=== PATIENT | female | born 1980 | race Caucasian/White ===

== ENCOUNTER 2017-01-05 18:47 | Emergency (ER) | payer OTHER ==
[2017-01-05 19:10] VITALS: RESP 16
--- NOTE | 2017-01-05 19:26 | ED ---
General Adult HPI - General Chief complaint: Seizure Stated complaint: NVD, altered mental status Time Seen by Provider: 01/05/17 18:52 Source: patient, EMS, RN notes reviewed, old records reviewed Mode of arrival: EMS Limitations: altered mental status - History of Present Illness Initial comments: Chief complaint and history of present illness a 36-year-old female who had a seizure at home. She was sent in by ambulance. Her boyfriend called it in. Patient had a seizure yesterday as well. Today was different because she remained more confused. While in route the patient appeared to improve. She is alert and oriented at this time. Needs only several hints to answer certain questions that are more difficult. She does her own past history including breast cancer and surgeries. As answers for questions like to be confirmed by reading previous charts. At this time the patient's denying any headache - Related Data Home Medications Medication Instructions Recorded Confirmed LORazepam [Ativan] 2 mg PO QID 02/14/15 01/05/17 ALPRAZolam [Xanax] 1 mg PO QID PRN 07/03/16 01/05/17 Acetaminophen Tab [Tylenol Tab] 1,000 mg PO Q6HR PRN 01/05/17 01/05/17 levETIRAcetam [Keppra] 500 mg PO BID 01/05/17 01/05/17 Previous Rx's Medication Instructions Recorded Zonisamide [Zonegran] 100 mg PO Q12HR #60 cap 06/09/16 Allergies Allergy/AdvReac Type Severity Reaction Status Date / Time amoxicillin Allergy Unknown Verified 01/05/17 20:02 gabapentin [From Neurontin] Allergy Unknown Verified 01/05/17 20:02 Childhood ibuprofen [From Motrin] Allergy HIVES Verified 01/05/17 20:02 metronidazole [From Flagyl] Allergy Unknown Verified 01/05/17 20:02 sulfamethoxazole Allergy Unknown Verified 01/05/17 20:02 [From Bactrim] trimethoprim [From Bactrim] Allergy Unknown Verified 01/05/17 20:02 carbamazepine [From Tegretol] AdvReac "MORE Verified 01/05/17 20:02 SEIZURES" cephalexin [From Keflex] AdvReac Rash/Hives Verified 01/05/17 20:02 Review of Systems ROS Statement: Those systems with pertinent positive or pertinent negative responses have been documented in the HPI. Review of systems at this time the patient's answering questions appropriately. Denying headache chest pain shortness breath GI/ problems. No evidence of any neuro deficit this time. Patient states she has seizures almost every day. States her boyfriend, Kalpana, called the ambulance today. She does follow up with neurology she has had a local neurologist and also one done in the city. In the past she is not been compliant with visits to the doctor. Her medications are Keppra and Zonegran. All systems reviewed past medical problems significant for breast cancer with bilateral mastectomies. He's also had a tubal pregnancies had surgery for that. History of seizure disorder on medications as noted. Daily encouraged to stop. Denies alcohol use. ROS Other: All systems not noted in ROS Statement are negative. Past Medical History Past Medical History: Cancer, GERD/Reflux, Seizure Disorder Additional Past Medical History / Comment(s): BREAST CANCER, h. pylori History of Any Multi-Drug Resistant Organisms: None Reported Additional Past Surgical History / Comment(s): Mastectomy-bilaterial BREAST SURGERY, LAPAROTOMY-FOR ECTOPIC PREG),' REMOVED FROM THROAT WIRES/IMPLANT THAT WAS IMPLANTED FOR SEIZURES", BILATERAL FALLOPIAN TUBES REMOVED Past Anesthesia/Blood Transfusion Reactions: Previous Problems w/ Anesthesia Additional Past Anesthesia/Blood Transfusion Reaction / Comment(s): DIFFICULT INTUBATION/ PNEUMONIA(ASPIRATION)thrush Past Psychological History: Depression, PTSD, Schizophrenia Additional Psychological History / Comment(s): Pt resides with her significant other: Ramon Dale. She is normally independent. She uses no assistive devices. She has no home care. She does not drive due to seizure disorder. Smoking Status: Current every day smoker Past Alcohol Use History: Rare Additional Past Alcohol Use History / Comment(s): Pt smokes about < 1/2 ppd. She started smoking at age 13 yrs old. Past Drug Use History: None Reported - Past Family History Father History Unknown: Yes Additional Family Medical History / Comment(s): Pt never knew her father" Mother History Unknown: Yes Additional Family Medical History / Comment(s): Pt does not know her mother's history- pt was raised in foster care for much of her life. General Exam - General Exam Comments Initial Comments: General: The patient became more and more alert while emergency room even over the first 15 minutes. Patient was alert and oriented the only question she got wrong was the month but he was able to figure it out when given a few clues. Vital signs within normal limits. Eye: Pupils are equal, round and reactive to light, extra-ocular movements are intact ; there is normal conjunctiva bilaterally. No signs of icterus. Ears, nose, mouth and throat: There are moist mucous membranes and no oral lesions. Neck: The neck is supple, there is no tenderness , no anterior cervical lymphadenopathy, no evidence of any meningeal irritation. No meningismus. Cardiovascular: There is a regular rate and rhythm. No murmur, rub or gallop is appreciated. Respiratory: Lungs are clear to auscultation, respirations are non-labored, breath sounds are equal. No wheezes, stridor, rales, or rhonchi. Gastrointestinal: Soft, non-distended, non-tender abdomen without masses or organomegaly noted. There is no rebound or guarding present. No CVA tenderness. Bowel sounds are unremarkable. Back: There is no tenderness to palpation in the midline. There is no obvious deformity. No rashes noted. Musculoskeletal: Normal ROM, no tenderness, There is no pedal edema. There is no calf tenderness or swelling. Sensation intact. Pulses equal bilaterally 2+. Neurological: CN II-XII intact, There are no obvious motor or sensory deficits. Coordination appears grossly intact. Speech is normal. No focal or lateralizing findings. Initially the patient has some difficulty watching my finger but then she caught on was able to do it. Skin: Skin is warm and dry and no rashes or lesions are noted. Psychiatric: Cooperative, appropriate mood & affect, normal judgment. Denying any depression. Limitations: altered mental status Course Vital Signs 01/05/17 19:05 Temperature 98.3 F Pulse Rate 85 Respiratory 16 Rate Blood Pressure 116/73 O2 Sat by Pulse 100 Oximetry Medical Decision Making - Medical Decision Making Medical decision making patient's white count is 8.8 hemoglobin 12 hematocrit 38 BUN 16 creatinine 0.6 and GFR greater than 60. Glucose 92 with a potassium 4.1. Patient's boyfriend Ramon is here at bedside. Changes back to normal. She is answering questions quickly and appropriately. She does state that she does not currently have a neurologist seeing but she is getting her prescriptions rewritten by her family doctor. She states the family doctor's trying to help her get established with another neurologist. The boyfriend reports that she did run out of her medications several days ago missed 1 day only but is back on them now. Patient is alert and oriented wants to go home boyfriend states she is back to normal and is willing to take her home continue watching her. And have her follow-up with her family physician and establish herself with a neurologist. - Lab Data Result diagrams: 01/05/17 19:50 01/05/17 19:50 Lab Results 01/05/17 01/05/17 Range/Units 19:50 19:50 WBC 8.8 (3.8-10.6) k/uL RBC 3.90 (3.80-5.40) m/uL Hgb 12.6 (11.4-16.0) gm/dL Hct 38.1 (34.0-46.0) % MCV 97.9 (80.0-100.0) fL MCH 32.4 (25.0-35.0) pg MCHC 33.2 (31.0-37.0) g/dL RDW 13.8 (11.5-15.5) % Plt Count 130 L (150-450) k/uL Neutrophils % 76 % Lymphocytes % 15 % Monocytes % 6 % Eosinophils % 0 % Basophils % 0 % Neutrophils # 6.6 (1.3-7.7) k/uL Lymphocytes # 1.3 (1.0-4.8) k/uL Monocytes # 0.6 (0-1.0) k/uL Eosinophils # 0.0 (0-0.7) k/uL Basophils # 0.0 (0-0.2) k/uL Sodium 139 (137-145) mmol/L Potassium 4.1 (3.5-5.1) mmol/L Chloride 108 H (98-107) mmol/L Carbon Dioxide 19 L (22-30) mmol/L Anion Gap 12 mmol/L BUN 16 (7-17) mg/dL Creatinine 0.60 (0.52-1.04) mg/dL Est GFR (MDRD) Af Amer >60 (>60 ml/min/1.73 sqM) Est GFR (MDRD) Non-Af >60 (>60 ml/min/1.73 sqM) Glucose 92 (74-99) mg/dL Calcium 9.3 (8.4-10.2) mg/dL Total Bilirubin 0.6 (0.2-1.3) mg/dL AST 22 (14-36) U/L ALT 40 (9-52) U/L Alkaline Phosphatase 46 (38-126) U/L Total Protein 7.0 (6.3-8.2) g/dL Albumin 4.3 (3.5-5.0) g/dL Disposition Clinical Impression: Post-ictal confusion Disposition: HOME SELF-CARE Condition: Good Instructions: Recurrent Seizures in Adults (ED) Additional Instructions: Remember take medications every day. Get adequate rest. Follow-up family physician. Reestablish herself with a neurologist. Time of Disposition: 20:39
[2017-01-05 20:08] LABS: Basophils % (A) 0 %; CH 32.5; CHCM 33.4; Eosinophils % (A) 0 %; HCT 38.1 % (34.0-46.0); HDW 2.09; HGB 12.6 gm/dL (11.4-16.0); Luc % (Auto) 2; Lymphocytes # (A) 1.3 k/uL (1.0-4.8); Lymphocytes % (A) 15 %; MCH 32.4 pg (25.0-35.0); MCHC 33.2 g/dL (31.0-37.0); MCV 97.9 fL (80.0-100.0); Mean Platelet Volume 8.5; Monocytes # (A) 0.6 k/uL (0-1.0); Monocytes % (A) 6 %; Neutrophils # (A) 6.6 k/uL (1.3-7.7); Neutrophils % (A) 76 %; RDW 13.8 % (11.5-15.5); WBC 8.8 k/uL (3.8-10.6); WBC (Perox) 9.01
[2017-01-05 20:17] LABS: ALT 40 U/L (9-52); AST 22 U/L (14-36); Alkaline Phosphatase 46 U/L (38-126); Anion Gap 12 mmol/L; Blood Urea Nitrogen 16 mg/dL (7-17); Calcium 9.3 mg/dL (8.4-10.2); Carbon Dioxide 19 mmol/L (22-30); Chloride 108 mmol/L (98-107); Glucose 92 mg/dL (74-99); Non-African American GFR(MDRD) >60 (>60 ml/min/1.73 sqM); Potassium 4.1 mmol/L (3.5-5.1); Sodium 139 mmol/L (137-145); Total Bilirubin 0.6 mg/dL (0.2-1.3)
[2017-01-05 20:43] VITALS: BP 107/71; PULSE 99; TEMP 98.1
[2017-01-07 11:20] LABS: Levetiracetam (Keppra) <1.0 ug/mL (3.0-60.0)
== END 2017-01-05 21:10 | disposition home or self-care (01) ==
LOC: EC 18:47
DX: G40.909 Epilepsy, unspecified, not intractable, without status epilepticus (principal); F17.200 Nicotine dependence, unspecified, uncomplicated; Z79.899 Other long term (current) drug therapy; Z88.0 Allergy status to penicillin; Z88.8 Allergy status to other drugs, medicaments and biological substances; Z88.2 Allergy status to sulfonamides; Z88.1 Allergy status to other antibiotic agents
CPT/HCPCS: 36415; 80053; 80177; 80203; 85025; 93005; 99285

== ENCOUNTER 2017-11-21 19:59 | Emergency (ER) | payer OTHER ==
[2017-11-21] MEDS ORDERED: RX INFO: IV CONTRAST WAS GIVEN 1 EACH MISC MISCELLANE PRN (20:57)
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
[2017-11-21 21:36] LABS: Basophils % (A) 1 %; Eosinophils # (A) 0.1 k/uL (0-0.7); Eosinophils % (A) 2 %; HCT 44.2 % (34.0-46.0); HGB 13.7 gm/dL (11.4-16.0); Lymphocytes # (A) 1.8 k/uL (1.0-4.8); Lymphocytes % (A) 25 %; MCH 31.3 pg (25.0-35.0); MCHC 31.1 g/dL (31.0-37.0); MCV 100.7 fL (80.0-100.0); Macrocytosis Slight; Mean Platelet Volume 9.4; Monocytes # (A) 0.3 k/uL (0-1.0); Monocytes % (A) 4 %; Neutrophils # (A) 4.8 k/uL (1.3-7.7); Neutrophils % (A) 67 %; Platelet Count 116 k/uL (150-450); RBC 4.38 m/uL (3.80-5.40); RDW 14.4 % (11.5-15.5); WBC 7.1 k/uL (3.8-10.6)
[2017-11-21 21:37] VITALS: RESP 18
[2017-11-21 21:46] LABS: ALT 20 U/L (9-52); AST 24 U/L (14-36); Albumin 4.7 g/dL (3.5-5.0); Alkaline Phosphatase 54 U/L (38-126); Anion Gap 13 mmol/L; Blood Urea Nitrogen 10 mg/dL (7-17); Carbon Dioxide 20 mmol/L (22-30); Chloride 110 mmol/L (98-107); Glucose 111 mg/dL (74-99); Magnesium 1.9 mg/dL (1.6-2.3); Sodium 143 mmol/L (137-145); Total Bilirubin 0.6 mg/dL (0.2-1.3); Total Protein 7.9 g/dL (6.3-8.2)
[2017-11-21 21:48] LABS: Potassium 5.3 mmol/L (3.5-5.1)
[2017-11-21 21:50] LABS: INR 1.1 (<1.2); Partial Thromboplastin Time 22.1 sec (22.0-30.0); Prothrombin Time 10.7 sec (9.0-12.0)
[2017-11-21 21:56] LABS: Creatine Kinase 43 U/L (30-135)
[2017-11-21 22:07] LABS: Amphetamine Screen,Urine Not Detected (NotDetected); Barbiturate Screen,Urine Not Detected (NotDetected); Benzodiazepines Screen,Urine Detected (NotDetected); Cocaine Screen,Urine Not Detected (NotDetected); Methadone Screen, Urine Not Detected (NotDetected); Opiate Screen,Urine Not Detected (NotDetected); Oxycodone Screen, Urine Not Detected (NotDetected); Phencyclidine Screen,Urine Not Detected (NotDetected); Tricyclic Antidepressant,Urine Not Detected (NotDetected); Urn Cannabinoid Scrn Not Detected (NotDetected)
[2017-11-21 22:09] LABS: Creatine Kinase MB <0.2 ng/mL (0.0-2.4); Troponin I 0.012 ng/mL (0.000-0.034)
--- NOTE | 2017-11-21 22:24 | CT ---
EXAMINATION TYPE: CT brain wo con DATE OF EXAM: 11/21/2017 COMPARISON: 06/13/2016 HISTORY: Seizures. History of epilepsy. CT DLP: 926.50 mGycm. Automated Exposure Control for Dose Reduction was Utilized. TECHNIQUE: CT scan of the head is performed without contrast. FINDINGS: Ventricles and sulci appear normal. There is no mass effect nor midline shift. There is n o sign of intracranial hemorrhage. The calvarium is intact. CONCLUSION: Negative CT scan of the brain. No change.
--- NOTE | 2017-11-21 22:28 | CT ---
EXAMINATION TYPE: CT chest angio for PE DATE OF EXAM: 11/21/2017 COMPARISON: NONE HISTORY: Chest pain. CT DLP: 133.40 mGycm Automated exposure control for dose reduction was used. CONTRAST: CT Chest for pulmonary embolism performed with with IV Contrast, patient injected with 67 mL of Omnip aque 350. There are 3-D post processed images. FINDINGS: The lungs are clear of consolidation. There is no evidence of a pulmonary mass. Heart size is normal. There is no mediastinal adenopathy. There are no hilar masses. There is no pericardial effusion. I see no filling defects in the pulmonary arteries. There is no evidence of aortic aneurysm or dissec tion. The bony thorax appears intact. IMPRESSION: Negative CT angiogram of the chest. No evidence of pulmonary embolism.
[2017-11-21 22:53] VITALS: BP 103/72; PULSE 95; TEMP 98
== END 2017-11-21 23:04 | disposition home or self-care (01) ==
LOC: EC 19:59
DX: S05.12XA Contusion of eyeball and orbital tissues, left eye, initial encounter (principal); H11.32 Conjunctival hemorrhage, left eye; G40.909 Epilepsy, unspecified, not intractable, without status epilepticus; R07.89 Other chest pain; F20.9 Schizophrenia, unspecified; F32.9 Major depressive disorder, single episode, unspecified; F43.10 Post-traumatic stress disorder, unspecified; F17.200 Nicotine dependence, unspecified, uncomplicated; Z85.3 Personal history of malignant neoplasm of breast; Z79.899 Other long term (current) drug therapy; Z88.1 Allergy status to other antibiotic agents; Z88.2 Allergy status to sulfonamides; Z88.6 Allergy status to analgesic agent; Z88.8 Allergy status to other drugs, medicaments and biological substances; Z88.0 Allergy status to penicillin; W18.00XA Striking against unspecified object with subsequent fall, initial encounter
CPT/HCPCS: 99285; 36415; 93005; 80053; 80177; 82550; 82553; 83735; 84484; 85025; 85610; 85730; 81025; 80306; 70450; 71275; Q9967

== ENCOUNTER 2018-02-12 10:30 | Day surgery (SDC) | payer OTHER ==
[2018-02-10 14:59] VITALS: BMI 19.5
[2018-02-12 11:38] VITALS: RESP 16; TEMP 97.9
[2018-02-12] MEDS ORDERED: LACTATED RINGERS 1,000 ML IV ONE (11:43)
[2018-02-12] MEDS ORDERED: LIDOCAINE 1% 20 ML VIAL (10MG/ML) FOR IV START INTRADERMA ONE (11:44)
[2018-02-12] MEDS ORDERED: PROPOFOL 10 MG/ML 20 ML VIAL IV ONE (12:46)
[2018-02-12] MEDS ORDERED: fentaNYL (PF) 50 MCG/ML 2 ML AMP ONE (12:46)
[2018-02-12] MEDS ORDERED: MIDAZOLAM 2 MG/2 ML VIAL ONE (12:46)
[2018-02-12] MEDS ORDERED: LIDOCAINE 1% INJ 10MG/ML (20 ML MDV) ONE (12:46)
--- NOTE | 2018-02-12 12:56 | P.PCN ---
Date of Procedure: 02/12/18 Procedure(s) Performed: BRIEF HISTORY: Patient is a 37-year-old, pleasant, female, scheduled for an upper endoscopy as a part of evaluation of epigastric pain associated with nausea vomiting for the last 6-7 months duration. She tried Prilosec with no help. Hence scheduled for an upper endoscopy to evaluate further. PROCEDURE PERFORMED: Esophagogastroduodenoscopy with biopsy. PREOPERATIVE DIAGNOSIS: Epigastric pain, nausea vomiting of several months duration. IV sedation per anesthesia. PROCEDURE: After informed consent was obtained, the patient was brought into the endoscopy unit. IV sedation was administered by Anesthesia under continuous monitoring. Initially the Olympus GIF-140 video endoscope was inserted into the mouth. Esophagus intubated without any difficulty. It was gradually advanced into the stomach and duodenum and carefully examined. The bulb and the second part of the duodenum appeared normal. Labs were done from the duodenum to rule out celiac disease. The scope at this time was withdrawn to the stomach, adequately insufflated with air, and upon careful examination, mucosa of the antrum, had patchy areas of erythema and biopsies were done from this area. The body, cardia and the fundus appeared normal. The scope was then withdrawn into the esophagus. The GE junction was located at 42 cm from the incisors. The esophagus appeared normal. There were no erosions or ulcerations seen and the patient tolerated the procedure well. IMPRESSION: 1. Mild Antral gastritis. 2. No evidence of esophagitis or peptic ulcer disease. RECOMMENDATIONS: The findings of this examination were discussed with the patient as well as his family. She was advised to follow with the biopsy results.
[2018-02-12] MEDS ORDERED: IV FLUID CONTINUATION 1,000 ML IV ONE (13:01)
[2018-02-12 13:18] VITALS: BP 107/68; PULSE 63
== END 2018-02-12 13:41 | disposition home or self-care (01) ==
LOC: ORWHC2ENDO 10:30
PROVIDERS: ATTEND Internal Medicine Gastroenterology
DX: K29.50 Unspecified chronic gastritis without bleeding (principal); K21.9 Gastro-esophageal reflux disease without esophagitis; R56.9 Unspecified convulsions; Z88.0 Allergy status to penicillin; Z88.6 Allergy status to analgesic agent; Z88.8 Allergy status to other drugs, medicaments and biological substances; Z79.899 Other long term (current) drug therapy; Z87.01 Personal history of pneumonia (recurrent)
CPT/HCPCS: 88305; 43239; J2250; J2001; J3010; J2704

== ENCOUNTER 2018-11-17 01:54 | Emergency (ER) | payer OTHER ==
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
[2018-11-17 02:23] VITALS: RESP 16; TEMP 98
[2018-11-17 03:06] LABS: Amphetamine Screen,Urine Not Detected (NotDetected); Barbiturate Screen,Urine Not Detected (NotDetected); Benzodiazepines Screen,Urine Detected (NotDetected); Cocaine Screen,Urine Not Detected (NotDetected); Methadone Screen, Urine Not Detected (NotDetected); Opiate Screen,Urine Not Detected (NotDetected); Oxycodone Screen, Urine Not Detected (NotDetected); Phencyclidine Screen,Urine Not Detected (NotDetected); Tricyclic Antidepressant,Urine Not Detected (NotDetected); Urn Cannabinoid Scrn Not Detected (NotDetected)
[2018-11-17] MEDS ORDERED: diphenhydrAMINE 50 MG/ML 1 ML VIAL IM STA (03:24)
[2018-11-17] MEDS ORDERED: HALOPERIDOL LACTATE 5 MG/ML 1 ML VIAL IM STA (03:24)
[2018-11-17 06:54] VITALS: BP 90/60; PULSE 98
== END 2018-11-17 07:18 | disposition home or self-care (01) ==
LOC: EC 01:54
DX: F10.129 Alcohol abuse with intoxication, unspecified (principal); R45.6 Violent behavior; G40.909 Epilepsy, unspecified, not intractable, without status epilepticus; F32.9 Major depressive disorder, single episode, unspecified; F17.200 Nicotine dependence, unspecified, uncomplicated; Z88.0 Allergy status to penicillin; Z88.1 Allergy status to other antibiotic agents; Z88.2 Allergy status to sulfonamides; Z88.6 Allergy status to analgesic agent; Z88.8 Allergy status to other drugs, medicaments and biological substances; Z79.899 Other long term (current) drug therapy; Z85.3 Personal history of malignant neoplasm of breast; Z90.13 Acquired absence of bilateral breasts and nipples
CPT/HCPCS: 80306; 99284; 96372 ×2; J1200; J1630; 82075

== ENCOUNTER 2019-05-21 23:01 | Emergency (ER) | payer OTHER ==
[2019-05-21 23:23] VITALS: RESP 16
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
[2019-05-21 23:38] VITALS: BP 138/68; PULSE 82; TEMP 98
== END 2019-05-21 23:35 | disposition home or self-care (01) ==
LOC: EC 23:01
DX: F43.0 Acute stress reaction (principal); G40.919 Epilepsy, unspecified, intractable, without status epilepticus; F17.200 Nicotine dependence, unspecified, uncomplicated; Z88.0 Allergy status to penicillin; Z88.1 Allergy status to other antibiotic agents; Z88.2 Allergy status to sulfonamides; Z88.6 Allergy status to analgesic agent; Z88.5 Allergy status to narcotic agent; Z88.8 Allergy status to other drugs, medicaments and biological substances; Z79.899 Other long term (current) drug therapy; Z85.3 Personal history of malignant neoplasm of breast; Z90.13 Acquired absence of bilateral breasts and nipples
CPT/HCPCS: 82075; 93005; 99285

== ENCOUNTER 2020-08-13 02:42 | Observation (INO) | payer OTHER ==
--- NOTE | 2020-08-13 02:58 | ED ---
General Adult HPI - General Chief complaint: Overdose Stated complaint: ALLERGIC REACTION Time Seen by Provider: 08/13/20 02:57 Source: EMS Mode of arrival: EMS - History of Present Illness Initial comments: Samantha is a 39-year-old female with extensive history notable for seizure disorder as well as multiple psychiatric illnesses. Patient reports that she is currently being transitioned from Seroquel at night to trazodone. She states she's been told to wean down her Seroquel which she's been doing can't explain exactly how she is been doing this. States that tonight prior to going to bed she took all of her medications at the same time including Ativan, Benadryl for her seasonal ALLERGIES, Seroquel and trazodone. Patient reports she woke up around 2 AM feeling like she had very dry mouth like her lips were numb and like she was too woozy and didn't feel right. - Related Data Home Medications Medication Instructions Recorded Confirmed LORazepam [Ativan] 2 mg PO QID 02/14/15 05/21/19 levETIRAcetam [Keppra] 1,500 mg PO BID 01/05/17 05/21/19 Zonisamide [Zonegran] 100 mg PO HS 11/21/17 05/21/19 Zonisamide [Zonegran] 200 mg PO QAM 11/21/17 05/21/19 Melatonin 5 mg PO HS 05/21/19 05/21/19 Allergies Allergy/AdvReac Type Severity Reaction Status Date / Time amoxicillin Allergy Rash/Hives Verified 05/21/19 23:22 cephalexin [From Keflex] Allergy Rash/Hives Verified 05/21/19 23:22 codeine Allergy Unknown Verified 05/21/19 23:22 gabapentin [From Neurontin] Allergy Unknown Verified 05/21/19 23:22 Childhood ibuprofen [From Motrin] Allergy HIVES Verified 05/21/19 23:22 metronidazole [From Flagyl] Allergy Unknown Verified 05/21/19 23:22 sulfamethoxazole Allergy Unknown Verified 05/21/19 23:22 [From Bactrim] trimethoprim [From Bactrim] Allergy Unknown Verified 05/21/19 23:22 carbamazepine [From Tegretol] AdvReac "MORE Verified 05/21/19 23:22 SEIZURES" Review of Systems ROS Statement: Those systems with pertinent positive or pertinent negative responses have been documented in the HPI. ROS Other: All systems not noted in ROS Statement are negative. Past Medical History Past Medical History: Cancer, GERD/Reflux, Pneumonia, Seizure Disorder Additional Past Medical History / Comment(s): vomiting with bleeding,BREAST CANCER-no radiation or chemo-1998, h. pylori,hx of being in a coma from seizures History of Any Multi-Drug Resistant Organisms: None Reported Additional Past Surgical History / Comment(s): Mastectomy-bilaterial BREAST SURGERY, LAPAROTOMY-FOR ECTOPIC PREG),' REMOVED FROM THROAT WIRES/IMPLANT THAT WAS IMPLANTED FOR SEIZURES-bars still implanted to skull", BILATERAL FALLOPIAN TUBES REMOVED Past Anesthesia/Blood Transfusion Reactions: Previous Problems w/ Anesthesia Additional Past Anesthesia/Blood Transfusion Reaction / Comment(s): DIFFICULT INTUBATION/ PNEUMONIA(ASPIRATION)-pt does not recall difficulty with intubation- stated "was in a coma from seizures when this would have occurred,no letter given". Past Psychological History: Depression, PTSD, Schizophrenia Smoking Status: Current every day smoker Past Alcohol Use History: Occasional Past Drug Use History: None Reported - Past Family History Father History Unknown: Yes Additional Family Medical History / Comment(s): Pt never knew her father" Mother History Unknown: Yes Additional Family Medical History / Comment(s): Pt does not know her mother's history- pt was raised in foster care for much of her life. General Exam - General Exam Comments Initial Comments: Physical Exam GENERAL: Sleepy but wakes to voice, provides appropriate history HENT: Normocephalic, Atraumatic. EYES: PERRL, EOMI Pupils are 4 mm and reactive bilaterally PULMONARY: Unlabored respirations. No audible rales rhonchi or wheezing was noted. CARDIOVASCULAR: There is a regular rate and rhythm without any murmurs gallops or rubs. ABDOMEN: Soft and nontender with normal bowel sounds. SKIN: Skin is clear with no lesions or rashes and otherwise unremarkable. No diaphoresis : Deferred NEUROLOGIC: Patient is alert and oriented x3. Moving all extremities spontaneously Speech is mildly slurred patient appears intoxicated or under the influence MUSCULOSKELETAL: Normal extremities with adequate strength and full range of motion. No lower extremity swelling or edema. No calf tenderness. PSYCHIATRIC: Normal psychiatric evaluation. Course Vital Signs 08/13/20 02:45 Temperature 97.2 F L Pulse Rate 88 Respiratory 20 Rate Blood Pressure 112/91 O2 Sat by Pulse 97 Oximetry EKG Findings - EKG Comments: EKG Findings:: EKG was obtained due to polysubstance ingestion, EKG was obtained at 3:44 AM, rate is 84 rhythm is sinus, LA 1:30, QRS 92, QTc is prolonged at [address] elevations there are T-wave inversions in V1 through V4 . No evidence of acute ischemia or infarction. Medical Decision Making - Medical Decision Making The patient was seen and evaluated history is obtained as best as possible from the patient who appears to be intoxicated Patient admits to taking Ativan, Benadryl, trazodone, Seroquel patient has a strong odor of alcohol Labs resulted with evidence of alcohol intoxication We observed the patient for 4 hours however she remained quite somnolent, she urinated on herself in the bed. She does not have any emergency contact anybody who could observe her at home. At this time in all nguyen a for the patient be discharged home she will be placed in observation. Plan for observation was discussed with Dr. Fajardo the [facility] physician group who agrees with plan for observation with telemetry monitoring - Lab Data Result diagrams: 08/13/20 04:20 08/13/20 04:20 Lab Results 08/13/20 08/13/20 Range/Units 04:20 04:20 WBC 3.5 L (3.8-10.6) k/uL RBC 4.39 (3.80-5.40) m/uL Hgb 14.1 (11.4-16.0) gm/dL Hct 42.7 (34.0-46.0) % MCV 97.1 (80.0-100.0) fL MCH 32.1 (25.0-35.0) pg MCHC 33.0 (31.0-37.0) g/dL RDW 12.8 (11.5-15.5) % Plt Count 92 L (150-450) k/uL Neutrophils % 40 % Lymphocytes % 49 % Monocytes % 7 % Eosinophils % 1 % Basophils % 0 % Neutrophils # 1.4 (1.3-7.7) k/uL Lymphocytes # 1.7 (1.0-4.8) k/uL Monocytes # 0.2 (0-1.0) k/uL Eosinophils # 0.0 (0-0.7) k/uL Basophils # 0.0 (0-0.2) k/uL Manual Slide Review Performed Sodium 142 (137-145) mmol/L Potassium 4.0 (3.5-5.1) mmol/L Chloride 110 H (98-107) mmol/L Carbon Dioxide 21 L (22-30) mmol/L Anion Gap 11 mmol/L BUN 6 L (7-17) mg/dL Creatinine 0.66 (0.52-1.04) mg/dL Est GFR (CKD-EPI)AfAm >90 (>60 ml/min/1.73 sqM) Est GFR (CKD-EPI)NonAf >90 (>60 ml/min/1.73 sqM) Glucose 100 H (74-99) mg/dL Calcium 8.9 (8.4-10.2) mg/dL Total Bilirubin 0.2 (0.2-1.3) mg/dL AST 23 (14-36) U/L ALT 12 (4-34) U/L Alkaline Phosphatase 35 L (38-126) U/L Total Protein 7.5 (6.3-8.2) g/dL Albumin 4.6 (3.5-5.0) g/dL Salicylates <1.0 mg/dL Acetaminophen <10.0 ug/mL Serum Alcohol 131 mg/dL Disposition Clinical Impression: Accidental drug overdose Disposition: ADMITTED IP TO THIS HOSP Additional Instructions: Do NOT take your medications together at night Do NOT take your medications with alcohol Do NOT take both seroquel AND trazadone to sleep, take only one per night Follow up with your primary care doctor and psychiatrist for further recommendations Is patient prescribed a controlled substance at d/c from ED?: No Referrals: None,Stated [Primary Care Provider] - 1-2 days
[2020-08-13] MEDS ORDERED: SODIUM CHLORIDE 0.9% 1,000 ML IV STA (03:33)
[2020-08-13 04:29] LABS: Basophils % (A) 0 %; Eosinophils % (A) 1 %; HCT 42.7 % (34.0-46.0); HGB 14.1 gm/dL (11.4-16.0); Lymphocytes # (A) 1.7 k/uL (1.0-4.8); Lymphocytes % (A) 49 %; MCH 32.1 pg (25.0-35.0); MCV 97.1 fL (80.0-100.0); Mean Platelet Volume 9.3; Monocytes # (A) 0.2 k/uL (0-1.0); Monocytes % (A) 7 %; Neutrophils # (A) 1.4 k/uL (1.3-7.7); Neutrophils % (A) 40 %; RBC 4.39 m/uL (3.80-5.40); RDW 12.8 % (11.5-15.5); WBC 3.5 k/uL (3.8-10.6)
[2020-08-13 04:38] LABS: ALT 12 U/L (4-34); AST 23 U/L (14-36); Acetaminophen <10.0 ug/mL; African American GFR (CKD) >90 (>60 ml/min/1.73 sqM); Albumin 4.6 g/dL (3.5-5.0); Alcohol 131 mg/dL; Alkaline Phosphatase 35 U/L (38-126); Anion Gap 11 mmol/L; Blood Urea Nitrogen 6 mg/dL (7-17); Calcium 8.9 mg/dL (8.4-10.2); Carbon Dioxide 21 mmol/L (22-30); Chloride 110 mmol/L (98-107); Glucose 100 mg/dL (74-99); Non-African American GFR(CKD) >90 (>60 ml/min/1.73 sqM); Salicylate <1.0 mg/dL; Sodium 142 mmol/L (137-145); Total Bilirubin 0.2 mg/dL (0.2-1.3); Total Protein 7.5 g/dL (6.3-8.2)
[2020-08-13 04:51] LABS: Platelet Count 92 k/uL (150-450)
[2020-08-13] MEDS ORDERED: NALOXONE 0.4 MG/ML 1 ML VIAL IV PRN (07:19)
[2020-08-13] MEDS ORDERED: ACETAMINOPHEN TAB 325 MG TAB PO PRN (14:42)
[2020-08-13] MEDS ORDERED: ONDANSETRON 4 MG/2 ML VIAL IVP PRN (14:42)
[2020-08-13] MEDS ORDERED: THIAMINE 100 MG/ML 2 ML VIAL IM STA (14:50)
[2020-08-13] MEDS ORDERED: LORazepam 2 MG/ML INJ IV PRN ×3 (14:50)
--- NOTE | 2020-08-13 14:51 | P.HPIM ---
History of Present Illness H&P Date: 08/13/20 Chief Complaint: After mental status This is a 39-year-old female with past medical history significant for underlying seizure disorder and unspecified psychiatric disorder that presented to the emergency room with confusion. Patient was seen by me in the ER. She was uncooperative and not answering any of my questions. She appeared catatonic and occasionally answer my questions abruptly with unclear speech. She was evaluated in the ER and per ER report patient took Seroquel, Ativan, Benadryl, and trazodone last night and woke up around 2 AM with a very dry mouth and lips. She reported having numbness in her lips as well. Workup in the emergency room showed that her lab work was mostly within acceptable range. No seizure activity detected. Patient will be placed in observation for further management. Review of Systems Unable to review other systems as patient is not cooperative Past Medical History Past Medical History: Cancer, GERD/Reflux, Pneumonia, Seizure Disorder Additional Past Medical History / Comment(s): vomiting with bleeding,BREAST CANCER-no radiation or chemo-1998, h. pylori,hx of being in a coma from seizures History of Any Multi-Drug Resistant Organisms: None Reported Additional Past Surgical History / Comment(s): Mastectomy-bilaterial BREAST SURGERY, LAPAROTOMY-FOR ECTOPIC PREG),' REMOVED FROM THROAT WIRES/IMPLANT THAT WAS IMPLANTED FOR SEIZURES-bars still implanted to skull", BILATERAL FALLOPIAN TUBES REMOVED Past Anesthesia/Blood Transfusion Reactions: Previous Problems w/ Anesthesia Additional Past Anesthesia/Blood Transfusion Reaction / Comment(s): DIFFICULT INTUBATION/ PNEUMONIA(ASPIRATION)-pt does not recall difficulty with intubation- stated "was in a coma from seizures when this would have occurred,no letter given". Past Psychological History: Depression, PTSD, Schizophrenia Smoking Status: Current every day smoker Past Alcohol Use History: Occasional Past Drug Use History: None Reported - Past Family History Father History Unknown: Yes Additional Family Medical History / Comment(s): Pt never knew her father" Mother History Unknown: Yes Additional Family Medical History / Comment(s): Pt does not know her mother's history- pt was raised in foster care for much of her life. Medications and Allergies Home Medications Medication Instructions Recorded Confirmed Type LORazepam [Ativan] 2 mg PO QID 02/14/15 05/21/19 History levETIRAcetam [Keppra] 1,500 mg PO BID 01/05/17 05/21/19 History Zonisamide [Zonegran] 100 mg PO HS 11/21/17 05/21/19 History Zonisamide [Zonegran] 200 mg PO QAM 11/21/17 05/21/19 History Melatonin 5 mg PO HS 05/21/19 05/21/19 History Allergies Allergy/AdvReac Type Severity Reaction Status Date / Time amoxicillin Allergy Rash/Hives Verified 05/21/19 23:22 cephalexin [From Keflex] Allergy Rash/Hives Verified 05/21/19 23:22 codeine Allergy Unknown Verified 05/21/19 23:22 gabapentin [From Neurontin] Allergy Unknown Verified 05/21/19 23:22 Childhood ibuprofen [From Motrin] Allergy HIVES Verified 05/21/19 23:22 metronidazole [From Flagyl] Allergy Unknown Verified 05/21/19 23:22 sulfamethoxazole Allergy Unknown Verified 05/21/19 23:22 [From Bactrim] trimethoprim [From Bactrim] Allergy Unknown Verified 05/21/19 23:22 carbamazepine [From Tegretol] AdvReac "MORE Verified 05/21/19 23:22 SEIZURES" Physical Exam Vitals: Vital Signs Temp Pulse Resp BP Pulse Ox 08/13/20 11:00 87 16 112/86 97 08/13/20 10:00 80 16 113/76 97 08/13/20 09:00 81 16 113/77 97 08/13/20 08:00 77 16 111/80 97 08/13/20 07:23 84 18 112/74 99 08/13/20 02:45 97.2 F L 88 20 112/91 97 Intake and Output 08/12/20 08/13/20 08/13/20 22:59 06:59 14:59 Other: Weight 67.585 kg General: The patient is awake and alert, in no distress Eye: there is normal conjunctiva bilaterally. Neck: The neck is supple, there is no JVD. Cardiovascular: Normal S1-S2, no S3-S4, no murmurs. Respiratory: Lungs clear to auscultation bilaterally Gastrointestinal: Abdomen is soft, nontender Musculoskeletal: There is no pedal edema. Neurological:. Speech is normal. Skin: Skin is warm and dry Results CBC & Chem 7: 08/13/20 04:20 08/13/20 04:20 Labs: Abnormal Lab Results - Last 24 Hours (Table) 08/13/20 08/13/20 Range/Units 04:20 04:20 WBC 3.5 L (3.8-10.6) k/uL Plt Count 92 L (150-450) k/uL Chloride 110 H (98-107) mmol/L Carbon Dioxide 21 L (22-30) mmol/L BUN 6 L (7-17) mg/dL Glucose 100 H (74-99) mg/dL Alkaline Phosphatase 35 L (38-126) U/L Assessment and Plan Assessment: 1. Altered mental status with what appears to be a catatonic state. Exact etiology unclear. I would obtain computed tomography scan of the head for further evaluation. Check urinalysis. Rest of lab work within acceptable range. Patient took multiple medication last night including Seroquel, Ativan, trazodone, and Benadryl that might be affecting her mentation. 2. Underlying seizure disorder, on Keppra. We will continue to monitor. If not improving consider EEG in the morning and neurology consultation. Continue seizure precaution 3. Underlying psychiatric illness nonspecified, I can't find any documentation about her underlying psychiatric illness. Patient is unable to provide any further history. No family members at bedside. 4. Alcohol intoxication, alcohol level presentation 130. CIWA protocol as needed 5. Prolonged QT interval, noted on 12-lead EKG. Probably secondary to polypharmacy. Continue telemetry monitoring. Repeat EKG in the morning. Today, I reviewed her lab work results. Awaiting home medication list to be reconciled. Continue IV fluid hydration with normal saline at the 100ml per hour. Repeat lab work in the morning.
[2020-08-13 15:33] LABS: Appearance,Urine Clear (Clear); Bilirubin,Urine Negative (Negative); Blood,Urine Negative (Negative); Color,Urine Yellow; Glucose,Urine (UA) Negative (Negative); Ketones,Urine Negative (Negative); Leukocyte Esterase,Urine Trace (Negative); Mucus,Urine Rare /hpf; Nitrite,Urine Negative (Negative); Protein,Urine Negative (Negative); Specific Gravity,Urine 1.011 (1.001-1.035); Squamous Epithelial Cell,Urine 4 /hpf (0-4); Urobilinogen,Urine <2.0 mg/dL (<2.0); WBC,Urine 1 /hpf (0-5)
[2020-08-13] MEDS ORDERED: LORazepam 2 MG/ML INJ IV STA (15:38)
[2020-08-13] MEDS ORDERED: levETIRAcetam IV 1,000 MG in SALINE 1 100ML.BAG IVPB STA (15:39)
[2020-08-13 15:40] LABS: Amphetamine Screen,Urine Not Detected (NotDetected); Barbiturate Screen,Urine Not Detected (NotDetected); Benzodiazepines Screen,Urine Detected (NotDetected); Cocaine Screen,Urine Not Detected (NotDetected); Methadone Screen, Urine Not Detected (NotDetected); Opiate Screen,Urine Not Detected (NotDetected); Oxycodone Screen, Urine Not Detected (NotDetected); Phencyclidine Screen,Urine Not Detected (NotDetected); Tricyclic Antidepressant,Urine Detected (NotDetected); Urn Cannabinoid Scrn Not Detected (NotDetected)
[2020-08-13] MEDS: SODIUM CHLORIDE 0.9% 1,000 ML IV SCH (15:45)
--- NOTE | 2020-08-13 17:34 | CT ---
EXAMINATION TYPE: CT brain wo con DATE OF EXAM: 08/13/2020 COMPARISON: 11/21/2017 HISTORY: Altered mental status post seizure. CT DLP: 1056.4 mGycm Automated exposure control for dose reduction was used. Ventricles and sulci appear normal. There is no mass effect nor midline shift. There is no sign of in tracranial hemorrhage. Calvarium appears normal. Skull base is intact. There are punctate tiny calcif ications in the periphery of the left temporal lobe of doubtful significance. IMPRESSION: Normal unenhanced head CT scan. No change.
[2020-08-13] MEDS: THIAMINE 100 MG TAB PO SCH (20:37)
[2020-08-13] MEDS: HEPARIN SODIUM,PORCINE 5,000 UNIT/ML 1 ML VIAL SQ SCH (20:38)
[2020-08-13] MEDS: levETIRAcetam IV 1,500 MG in SALINE 1 100ML.BAG IVPB SCH (20:42)
[2020-08-13 23:29] VITALS: RESP 16
[2020-08-14] MEDS ORDERED: MELATONIN 5 MG TABLET PO ONE (00:30)
[2020-08-14] MEDS: SODIUM CHLORIDE 0.9% 1,000 ML IV SCH ×2 (00:37→12:24)
[2020-08-14] MEDS: THIAMINE 100 MG TAB PO SCH ×2 (06:09→08:57)
[2020-08-14 08:04] LABS: Basophils % (A) 0 %; Eosinophils # (A) 0.1 k/uL (0-0.7); Eosinophils % (A) 2 %; HCT 35.2 % (34.0-46.0); HGB 11.3 gm/dL (11.4-16.0); Lymphocytes # (A) 1.4 k/uL (1.0-4.8); Lymphocytes % (A) 32 %; MCH 31.1 pg (25.0-35.0); MCV 97.1 fL (80.0-100.0); Mean Platelet Volume 9.2; Monocytes # (A) 0.2 k/uL (0-1.0); Monocytes % (A) 5 %; Neutrophils # (A) 2.6 k/uL (1.3-7.7); Neutrophils % (A) 59 %; RBC 3.62 m/uL (3.80-5.40); RDW 12.3 % (11.5-15.5); WBC 4.5 k/uL (3.8-10.6)
[2020-08-14 08:12] LABS: Platelet Count 77 k/uL (150-450)
[2020-08-14 08:19] LABS: ALT 10 U/L (4-34); AST 22 U/L (14-36); African American GFR (CKD) >90 (>60 ml/min/1.73 sqM); Albumin 3.3 g/dL (3.5-5.0); Alkaline Phosphatase 37 U/L (38-126); Anion Gap 5 mmol/L; Blood Urea Nitrogen 8 mg/dL (7-17); Carbon Dioxide 20 mmol/L (22-30); Chloride 115 mmol/L (98-107); Glucose 81 mg/dL (74-99); Non-African American GFR(CKD) >90 (>60 ml/min/1.73 sqM); Potassium 3.7 mmol/L (3.5-5.1); Sodium 140 mmol/L (137-145); Total Bilirubin 0.4 mg/dL (0.2-1.3); Total Protein 5.8 g/dL (6.3-8.2)
[2020-08-14] MEDS: levETIRAcetam IV 1,500 MG in SALINE 1 100ML.BAG IVPB SCH (08:57)
[2020-08-14] MEDS: HEPARIN SODIUM,PORCINE 5,000 UNIT/ML 1 ML VIAL SQ SCH (09:01)
[2020-08-14] MEDS ORDERED: LACOSAMIDE 150 MG TABLET PO SCH (10:15)
[2020-08-14] MEDS ORDERED: LACOSAMIDE 50 MG TABLET PO SCH (10:15)
--- NOTE | 2020-08-14 10:22 | P.CNNES ---
History of Present Illness Consult date: 08/14/20 Requesting physician: Jessica Hardy Reason for Consult: seizure History of Present Illness: This is a 39-year-old right handed woman with a medical history of epilepsy, bilateral breast cancer in 1997 s/p bilateral resection (did not have any radiation or chemo) and multiple psychiatric illness who presented to the em ergency department on 08/13/2020 for confusion. She stated that prior to going to bed she took all of her medication at the same time which included of Ativan, Benadryl for seasonal ALLERGIES, Seroquel and trazodone at. She woke up at 2 AM on 08/13/2020 feeling she had very dry mouth, her lips were numb and that she was woozy and didn't feel right. Per patient's nurse, the boyfriend stated that she intentionally overdosed on those meication. She stated that the she was told to wean off on her Seroquel which she's been doing so. She denies of any suicidal or homicidal plans or thoughts. Regarding her seizures patient continues to be on the Keppra 1500 mg twice a day, Zonegran 200mg qam and 100mg qhs and Vimapt 100 bid. She states that she has not missed any of her seizure medications. He was started on Vimpat the and 08/04/2020 by her neurologist. She follows up with neurologist over at [facility]. She said that she supposed to be weaned off of the Zonegran soon and her next appointment with a neurologist is on August 18. Regarding her seizure history she said that she start having seizures at the age of 3. She could not describe her seizures are for me she said that her partner usually sees her have any seizures but could not describe those seizures for many. She said her last seizure was about 1 year ago. She does not know about her history. She denies any family history of seizures. Patient the drinks alcohol socially according to her. She smokes one pack which last 2 days and that she's been smoking for years. Workup in the hospital consisted of: Vital signs his blood pressure of 112/91, heart rate of 88, respiratory rate of 20, temperature of 97.2 Fahrenheit oral, pulse ox of 97 percent at room air CT of the head on 08/13/2020 was reported as normal on has had CT scan. I have reviewed it and I agree there is no acute ischemia or hemorrhage seen. Alcohol level: 131. In the ED the patient was given Keppra 1 g once. And her Keppra 1500 mg was resumed as well as she was given the Ativan 2 mg once in ED. She was seen by our neuro hospitalist over at [facility] on 06/08/2016 and she stated that that she is on Keppra 1500 mg twice a day as well as Zonegran 100 mg twice a day at. She was notified to continue these me dications to follow-up with her neurologist. She also had a routine EEG on 05/23/2015 in our system and it was reported as markedly abnormal in diffuse fashion due to slowing of the electroencephalogram background. The electroencephalogram failed to reveal any focal, lateralized or epileptiform activity. Review of Systems Review of system: The 12 point system was reviewed and apparent positive and negative per HPI. Past Medical History Past Medical History: Cancer, GERD/Reflux, Pneumonia, Seizure Disorder Additional Past Medical History / Comment(s): vomiting with bleeding,BREAST CANCER-no radiation or chemo-1998, h. pylori,hx of being in a coma from seizures History of Any Multi-Drug Resistant Organisms: None Reported Additional Past Surgical History / Comment(s): Mastectomy-bilaterial BREAST SURGERY, LAPAROTOMY-FOR ECTOPIC PREG),' REMOVED FROM THROAT WIRES/IMPLANT THAT WAS IMPLANTED FOR SEIZURES-bars still implanted to skull", BILATERAL FALLOPIAN TUBES REMOVED Past Anesthesia/Blood Transfusion Reactions: Previous Problems w/ Anesthesia Additional Past Anesthesia/Blood Transfusion Reaction / Comment(s): DIFFICULT INTUBATION/ PNEUMONIA(ASPIRATION)-pt does not recall difficulty with intubation- stated "was in a coma from seizures when this would have occurred,no letter given". Past Psychological History: Depression, PTSD, Schizophrenia Additional Psychological History / Comment(s): Pt resides with her significant o ther: Ramon Dale. She is normally independent. She uses no assistive devices. She has no home care. She does not drive due to seizure disorder. Smoking Status: Current every day smoker Past Alcohol Use History: Occasional Additional Past Alcohol Use History / Comment(s): Pt smokes about < 1/2 ppd. She started smoking at age 13 yrs old. Past Drug Use History: None Reported - Past Family History Father History Unknown: Yes Additional Family Medical History / Comment(s): Pt never knew her father" Mother History Unknown: Yes Additional Family Medical History / Comment(s): Pt does not know her mother's history- pt was raised in foster care for much of her life. Medications and Allergies Home Medications Medication Instructions Recorded Confirmed Type levETIRAcetam [Keppra] 1,500 mg PO BID 01/05/17 08/13/20 History Zonisamide [Zonegran] 100 mg PO HS 11/21/17 08/13/20 History Zonisamide [Zonegran] 200 mg PO QAM 11/21/17 08/13/20 History Cetirizine HCl [Zyrtec] 10 mg PO DAILY 08/13/20 08/13/20 History Lacosamide [Vimpat] 100 mg PO BID 08/13/20 08/13/20 History Allergies Allergy/AdvReac Type Severity Reaction Status Date / Time amoxicillin Allergy Rash/Hives Verified 08/13/20 15:04 cephalexin [From Keflex] Allergy Rash/Hives Verified 08/13/20 15:04 codeine Allergy Unknown Verified 08/13/20 15:04 gabapentin [From Neurontin] Allergy Unknown Verified 08/13/20 15:04 Childhood ibuprofen [From Motrin] Allergy HIVES Verified 08/13/20 15:04 metronidazole [From Flagyl] Allergy Unknown Verified 08/13/20 15:04 sulfamethoxazole Allergy Unknown Verified 08/13/20 15:04 [From Bactrim] trimethoprim [From Bactrim] Allergy Unknown Verified 08/13/20 15:04 carbamazepine [From Tegretol] AdvReac "MORE Verified 08/13/20 15:04 SEIZURES" Physical Examination - Vital Signs Vital Signs: Vital Signs Temp Pulse Pulse Resp BP BP Pulse Ox 08/14/20 04:34 97.9 F 70 16 106/65 97 08/13/20 23:25 97.9 F 79 16 117/68 98 08/13/20 20:00 97.5 F L 83 19 136/83 100 08/13/20 17:35 98.6 F 87 16 127/81 99 08/13/20 17:08 98.7 F 87 16 127/81 99 08/13/20 16:41 97.2 F L 85 16 113/79 100 08/13/20 15:00 85 16 113/79 97 08/13/20 14:00 87 16 128/93 97 08/13/20 13:00 80 16 128/93 97 08/13/20 12:00 82 16 117/74 97 08/13/20 11:00 78 16 112/86 97 08/13/20 10:00 80 16 113/76 97 08/13/20 09:00 81 16 113/77 97 Intake and Output 08/13/20 08/14/20 08/14/20 22:59 06:59 14:59 Other: Voiding Method Toilet Toilet Diaper Diaper # Voids 1 2 Weight 67.585 kg 67.2 kg GENERAL: The patient is lying in bed and is not in acute distress. CHEST: The heart rate is regular rate rhythm. No murmurs to auscultation. LUNG: Clear to auscultation bilaterally no wheezing noted throughout. Not labored breathing. ABDOMEN/GI: Bowel sounds present in all 4 quadrants. No tenderness to palpation throughout. NEUROLOGICAL: Higher mental function: The patient is awake, alert, oriented to self, place and time. Patient is following commands. No aphasia and no neglect. Cranial nerves: The pupils are round, equal and reactive to light and accommodation. Visual nguyen are full to confrontation throughout. Extraocular movement is intact no nystagmus is noted. Facial sensation is normal to touch throughout. The facial strength is normal throughout. Hearing is normal bilaterally to hand rub. Tongue is midline and moved [id number] without any difficulty. No dysarthria is noted. Shoulder shrug is normal bilaterally. Motor: Gait is deferred. The strength is 5 over 5 throughout. Normal tone and bulk. Cerebellum: Normal finger to nose heel to chin bilaterally. Sensation: Sensation is normal to touch throughout. Reflexes (right/left): 2+ throughout. Plantars are downgoing bilaterally. Results White blood cell 3.5. UA is negative for urinary tract infection. Urine drug screen was positive for tricyclic antidepressant and benzodiazepine. Acetaminophen is less than 10. Serum alcohol is 131 - Laboratory Findings CBC and BMP: 08/14/20 07:30 08/14/20 07:30 Abnormal Lab Findings: Abnormal Labs 08/13/20 08/13/20 08/13/20 04:20 04:20 Unknown WBC 3.5 L RBC Hgb Plt Count 92 L Chloride 110 H Carbon Dioxide 21 L BUN 6 L Glucose 100 H Alkaline Phosphatase 35 L Ur Leukocyte Esterase Trace H Urine Mucus Rare H U Tricyclic Antidepress Detected H U Benzodiazepines Scrn Detected H 08/14/20 07:30 WBC RBC 3.62 L Hgb 11.3 L Plt Count 77 L Chloride Carbon Dioxide BUN Glucose Alkaline Phosphatase Ur Leukocyte Esterase Urine Mucus U Tricyclic Antidepress U Benzodiazepines Scrn Assessment and Plan Assessment: Toxic metabolic Encephalopathy due to multiple medication use (and some are sedative) and alcohol use Hx Epilepsy Alcohol use Overdosed on medications (Ativan, Benadryl, Seroquel and Trazodone)---according to boyfriend was intentional Schizophrenia Depression Tobacco use Plan: Regarding her seizure currently the patient is on the Keppra 1500 mg twice a day. I'll restart the patient on her home dose of Vimpat 100 mg twice a day and Zonegran 200mg qam and 100mg qhs. Primary team ordered EEG and is pending. She is currently on thiamine 100 mg bid. Patient was counseled on alcohol and tobacco cessation. She is currently on the Ativan when necessary for CIWA protcol. We'll defer management to primary team. Regarding her history of schizophrenia and depression and intentional overdose of medication, defer the management to psychiatric team Recommend that the follow-up with her neurologist once she is discharged regarding the management of his seizure. Thank you for the consult. Update: Patient refused EEG study. She was discharged home. Akil Hanna M.D. Neuro-hospitalist Time with Patient: Greater than 30
[2020-08-14] MEDS ORDERED: ZONISAMIDE 100 MG CAP PO SCH (10:30)
[2020-08-14 10:36] VITALS: TEMP 98.6
[2020-08-14 12:27] VITALS: BP 106/63; PULSE 95
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
--- NOTE | 2020-08-14 15:27 | P.DS ---
Providers Date of admission: 08/14/20 12:54 Expected date of discharge: 08/14/20 Attending physician: Jessica Hardy Consults: 08/13/20 15:40 Consult Physician Routine Consulting Provider: Wiliam Coughlin Consult Reason/Comments: Seizure Do you want consulting provider notified?: Yes 08/13/20 18:42 Consult Physician Routine Consulting Provider: Deric Hernandez Consult Reason/Comments: suicidal ideation Do you want consulting provider notified?: Yes Primary care physician: Stated None Hospital Course: This is a 39-year-old female with past medical history significant for underlying seizure disorder and unspecified psychiatric disorder that presented to the emergency room with confusion. per ER report patient took Seroquel, Ativan, Benadryl, and trazodone last night and woke up around 2 AM with a very dry mouth and lips. Workup in the emergency room showed that her lab work was mostly within acceptable range. Patient had a breakthrough seizure in the emergency room and was admitted to the hospital for further management of her medical problems noted below. 1. Altered mental status: Probably secondary to polypharmacy. lab work within acceptable range. Urinalysis unremarkable. Patient took multiple medication last night including Seroquel, Ativan, trazodone, and Benadryl that might be affecting her mentation. 2. Underlying seizure disorder, with a breakthrough seizure in the emergency room. on Keppra, Vimpat, and Zonegran. Computed tomography scan of the brain with no acute findings. Patient was seen and evaluated by neurology. No changes on her regimen. She was cleared for discharge. Patient refused to have an EEG done and wanted to be discharged from the hospital. 3. Underlying depression and anxiety: Seen and evaluated by psychiatry. Cleared for discharged home. Plan discussed with her boyfriend at bedside. Continue only with Seroquel in the outpatient setting. 4. Alcohol intoxication, alcohol level presentation 130. Received aggressive IV fluid hydration. Counseled extensively regarding alcohol cessation. 5. Prolonged QT interval, corrected QT interval 460. Avoid any medications that cause QT prolongation. Patient will be discharged home in a stable condition. For further details about this hospitalization please refer to the electronic chart. Time spent on discharge > 30 minutes including counseling and coordination of Patient Condition at Discharge: Stable Plan - Discharge Summary Discharge Rx Participant: No New Discharge Prescriptions: Continue levETIRAcetam [Keppra] 1,500 mg PO BID Zonisamide [Zonegran] 100 mg PO HS Zonisamide [Zonegran] 200 mg PO QAM Cetirizine HCl [Zyrtec] 10 mg PO DAILY Lacosamide [Vimpat] 100 mg PO BID Discontinued LORazepam [Ativan] 1 mg PO TID@0700,1300,1900 diphenhydrAMINE [Benadryl] 25 mg PO Q4H PRN PRN Reason: Allergic Reaction traZODone HCL [TraZODone HCl] 25 mg PO HS Discharge Medication List levETIRAcetam [Keppra] 1,500 mg PO BID 01/05/17 [History] Zonisamide [Zonegran] 100 mg PO HS 11/21/17 [History] Zonisamide [Zonegran] 200 mg PO QAM 11/21/17 [History] Cetirizine HCl [Zyrtec] 10 mg PO DAILY 08/13/20 [History] Lacosamide [Vimpat] 100 mg PO BID 08/13/20 [History] Follow up Appointment(s)/Referral(s): None,Stated [Primary Care Provider] - 1-2 days Activity/Diet/Wound Care/Special Instructions: Do NOT take your medications together at night Do NOT take your medications with alcohol Do NOT take both seroquel AND trazadone to sleep, take only one per night Follow up with your primary care doctor and psychiatrist for further recommendations Discharge Disposition: HOME SELF-CARE
[2020-08-15] MEDS ORDERED: ZONISAMIDE 100 MG CAP PO SCH (21:00)
== END 2020-08-14 18:15 | disposition home or self-care (01) ==
LOC: EC 02:42 → 6NMEDSUR 07:19 → 3SCARD 16:09 → INTOOBSV 08-14 12:54 → OBSVTOIN 08-14 12:54 → UNDODISIN 08-14 18:15
PROVIDERS: ADMIT Internal Medicine; ATTEND Internal Medicine
DX: T42.4X1A Poisoning by benzodiazepines, accidental (unintentional), initial encounter (principal); T45.0X1A Poisoning by antiallergic and antiemetic drugs, accidental (unintentional), initial encounter; G92 Toxic encephalopathy; K21.9 Gastro-esophageal reflux disease without esophagitis; F10.129 Alcohol abuse with intoxication, unspecified; G40.909 Epilepsy, unspecified, not intractable, without status epilepticus; F32.9 Major depressive disorder, single episode, unspecified; F43.10 Post-traumatic stress disorder, unspecified; F20.9 Schizophrenia, unspecified; I45.81 Long QT syndrome; J30.2 Other seasonal allergic rhinitis; F17.210 Nicotine dependence, cigarettes, uncomplicated; Z79.899 Other long term (current) drug therapy; Z88.1 Allergy status to other antibiotic agents; Z88.5 Allergy status to narcotic agent; Z88.0 Allergy status to penicillin; Z88.2 Allergy status to sulfonamides; Z88.8 Allergy status to other drugs, medicaments and biological substances; Z88.6 Allergy status to analgesic agent; Z87.01 Personal history of pneumonia (recurrent); Z85.3 Personal history of malignant neoplasm of breast; F41.9 Anxiety disorder, unspecified; Y90.6 Blood alcohol level of 120-199 mg/100 ml; Z86.19 Personal history of other infectious and parasitic diseases; Z90.13 Acquired absence of bilateral breasts and nipples; Z90.79 Acquired absence of other genital organ(s); Z87.19 Personal history of other diseases of the digestive system; Z98.890 Other specified postprocedural states
CPT/HCPCS: 96376; 96361; 96372; 96374; 99285; 36415; 93005; 80053 ×2; 80177; 85025 ×2; 81001; 80306; 83520; 70450; G0378 ×3; G0480 ×2; J2060; J3411; J1953 ×3; 80320; 80329; 96365; 96375